=== PATIENT | male | born 1990 | race African-American/Black ===

== ENCOUNTER 2019-01-30 13:50 | Inpatient (IN) | payer SELFPAY ==
[~2019-01-30] VITALS: Ht 177.8 cm; Wt 83.9 kg
[~2019-01-30 13:50] MED LIST: LURA40TA PO
[2019-01-30] MEDS ORDERED: IV NORMAL SALINE 1000ML BAG 1,000 ML IV ONE ×2 (14:45)
[2019-01-30] MEDS ORDERED: DICYCLOMINE 20 MG/2 ML AMPUL. IM ONE (14:45)
--- NOTE | 2019-01-30 14:46 | PHYS DOC ---
Past Medical History Past Medical History: Anxiety, Bipolar, Depression, Schizophrenia, Other Additional Past Medical Histor: manic depressive disorder, panic disorder Past Surgical History: No Surgical History Alcohol Use: None Drug Use: Marijuana, Methamphetamine Adult General Chief Complaint Chief Complaint: NAUSEA/VOMITING/DIARRHA HPI HPI 28-year-old male presents to ER via POV for complaints of 5 day history of generalized fatigue, cough, nausea, and diarrhea. Patient states he has not been able to eat due to the nausea. He reports he's had minimal fluid intake. Patient states he feels like he has a fungus that he has an his lungs. Patient states he coughs and can taste the fungus. Patient reports he feels like it is hard for him to take a deep breath. Patient denies being a smoker currently and he denies any recent travel. Patient states he has felt feverish denies taking his tem perature. Patient denies any chest pain, palpitations, or abdominal pain. Patient states he has had decreased urination due to less fluid intake. Review of Systems Review of Systems Constitutional: Reports feels feverish w/generalized fatigue Eyes: Denies change in visual acuity, redness, or eye pain [] HENT: Denies nasal congestion or sore throat [] Respiratory: Reports nonprod. cough and SOA Cardiovascular: Denies CP GI: Denies abdominal pain, vomiting, or bloody stools. Reports intermittent nausea and diarrhea : Denies dysuria or hematuria. Reports decreased urine output Musculoskeletal: Denies back pain or joint pain [] Integument: Denies rash or skin lesions [] Neurologic: Denies headache, focal weakness or sensory changes [] All other systems were reviewed and found to be within normal limits, except as documented in this note. Current Medications Current Medications Current Medications Medications (Trade) Dose Ordered Sig/Magda Start Time Stop Time Status Last Admin Dose Admin Dicyclomine HCl (Bentyl) 20 mg 1X ONCE 01/30/19 14:45 01/30/19 14:46 DC 01/30/19 14:45 20 MG Sodium Chloride 1,000 ml @ 1,000 mls/hr 1X ONCE 01/30/19 14:45 01/30/19 15:44 DC 01/30/19 15:02 1,000 MLS/HR Allergies Allergies Allergies Coded Allergies Type Severity Reaction Last Updated Verified No Known Drug Allergies 03/11/15 No Physical Exam Physical Exam Constitutional: Well developed, well nourished, fatigued appearance, anxious, non-toxic appearance. [] HENT: Normocephalic, atraumatic, bilateral ears normal, mucous membranes pink/dry, no oral exudates, nose normal. [] Eyes: PERRLA, no nystagmus, conjunctiva normal, no discharge. [] Neck: Normal range of motion, no tenderness, supple, no stridor. [] Cardiovascular: Heart rate regular rhythm, no murmur [] Lungs & Thorax: Bilateral breath sounds clear to auscultation- resp. equal/non labored Abdomen: Bowel sounds normal, soft diffuse tenderness in all abd no focal area- no rebound tenderness, no distention/rigidity, no masses, no pulsatile masses. [] Skin: Warm, dry, no erythema, no rash. [] Back: No tenderness, no CVA tenderness. [] Extremities: No tenderness, no cyanosis, no clubbing, ROM intact, no edema. [] Neurologic: Alert and oriented X 3, normal motor function, normal sensory function, no focal deficits noted. [] Psychologic: Affect normal, judgement normal, mood anxious- no uncontrollable behavior/cooperative during exam Current Patient Data Vital Signs Vital Signs Date Time Temp Pulse Resp B/P (MAP) Pulse Ox O2 Delivery O2 Flow Rate FiO2 01/30/19 16:39 83 16 123/74 (90) 100 Room Air 01/30/19 14:05 97.7 97.7 Lab Values Laboratory Tests Test 01/30/19 14:24 White Blood Count 5.0 x10^3/uL (4.0-11.0) Red Blood Count 6.13 x10^6/uL (4.30-5.70) H Hemoglobin 17.7 g/dL (13.0-17.5) H Hematocrit 50.5 % (39.0-53.0) Mean Corpuscular Volume 83 fL (79-100) Mean Corpuscular Hemoglobin 29 pg (25-35) Mean Corpuscular Hemoglobin Concent 35 g/dL (31-37) Red Cell Distribution Width 13.4 % (11.5-14.5) Platelet Count 279 x10^3/uL (140-400) Neutrophils (%) (Auto) 59 % (31-73) Lymphocytes (%) (Auto) 21 % (24-48) L Monocytes (%) (Auto) 19 % (0-9) H Eosinophils (%) (Auto) 1 % (0-3) Basophils (%) (Auto) 1 % (0-3) Neutrophils # (Auto) 2.9 x10^3uL (1.8-7.7) Lymphocytes # (Auto) 1.1 x10^3/uL (1.0-4.8) Monocytes # (Auto) 0.9 x10^3/uL (0.0-1.1) Eosinophils # (Auto) 0.0 x10^3/uL (0.0-0.7) Basophils # (Auto) 0.0 x10^3/uL (0.0-0.2) Segmented Neutrophils % 22 % (35-66) L Band Neutrophils % 29 % (0-9) H Lymphocytes % 28 % (24-48) Atypical Lymphocytes % (Manual) 2 % (0-0) H Monocytes % 16 % (0-10) H Basophils % 2 % (0-3) Myelocytes % 1 % (0-0) H Promyelocytes % % (0-0) Blast Cells % (Manual) % (0-0) Platelet Estimate Adequate (ADEQUATE) Giant Platelets Present Poikilocytosis Slight Target Cells Occ Ovalocytes Few Schistocytes Occ Sodium Level 129 mmol/L (136-145) L Potassium Level 3.1 mmol/L (3.5-5.1) L Chloride Level 88 mmol/L (98-107) L Carbon Dioxide Level 27 mmol/L (21-32) Anion Gap 14 (6-14) Blood Urea Nitrogen 43 mg/dL (8-26) H Creatinine 2.6 mg/dL (0.7-1.3) H Estimated GFR (Cockcroft-Gault) 35.5 BUN/Creatinine Ratio 17 (6-20) Glucose Level 111 mg/dL (70-99) H Calcium Level 10.1 mg/dL (8.5-10.1) Magnesium Level 2.2 mg/dL (1.8-2.4) Total Bilirubin 0.7 mg/dL (0.2-1.0) Aspartate Amino Transferase (AST) 26 U/L (15-37) Alanine Aminotransferase (ALT) 25 U/L (16-63) Alkaline Phosphatase 68 U/L (46-116) Total Protein 8.9 g/dL (6.4-8.2) H Albumin 3.9 g/dL (3.4-5.0) Albumin/Globulin Ratio 0.8 (1.0-1.7) L Lipase 86 U/L (73-393) Laboratory Tests 01/30/19 14:24 Laboratory Tests 01/30/19 14:24 EKG EKG [] Radiology/Procedures Radiology/Procedures [] Course & Med Decision Making Course & Med Decision Making Pertinent Labs and Imaging studies reviewed. (See chart for details) Pt was evaluated in the ER for complaints of generalized fatigue and GI illness for the past several days. Patient had labs obtained and was found to have an electrolyte imbalance with sodium at 129 chloride 88 potassium 3.1. Patient had IV fluids administered while in the ER 2 L fluid bolus. Patient was provided with dicyclomine for diffuse abdominal pain. Patient had elevated renal function with creatinine of 2.6. WBCs normal limits at 5.0 however had bandemia with 29 bands on differential. Test results were discussed with patient. Discussed plans for admission for further monitoring and care and patient is agreeable with this plan. Will provide dose of IV Zosyn. Patient will be provided with 40 mEq by mouth potassium for replacement. VS were stable and pt was afebrile. Will admit to hospitalist services for further care. Dragon Disclaimer Dragon Disclaimer This electronic medical record was generated, in whole or in part, using a voice recognition dictation system. Departure Departure Impression: Primary Impression: Acute renal injury Additional Impressions: Diarrhea Electrolyte abnormality Disposition: 09 ADMITTED INPATIENT Admitting Physician: Shona Vivas Condition: STABLE Referrals: NO PCP (PCP) Problem Qualifiers MAIDA VALLADARES STAFFING ADMINISTRATOR Jan 30, 2019 14:46
[2019-01-30 14:49] LABS: BASO % 1 % (0-3); EOS % 1 % (0-3); HEMATOCRIT 50.5 % (39.0-53.0); HEMOGLOBIN 17.7 g/dL (13.0-17.5); LYMPH # 1.1 x10^3/uL (1.0-4.8); LYMPH % 21 % (24-48); MEAN CORPUSCULAR HEMOGLOBIN 29 pg (25-35); MEAN CORPUSCULAR HGB CONC 35 g/dL (31-37); MEAN CORPUSCULAR VOLUME 83 fL (79-100); MONO # 0.9 x10^3/uL (0.0-1.1); MONO % 19 % (0-9); NEUT # 2.9 x10^3uL (1.8-7.7); NEUT % 59 % (31-73); PLATELET COUNT 279 x10^3/uL (140-400); RED BLOOD COUNT 6.13 x10^6/uL (4.30-5.70); RED CELL DISTRIBUTION WIDTH 13.4 % (11.5-14.5)
[2019-01-30 14:58] LABS: CALCIUM 10.1 mg/dL (8.5-10.1); CREATININE 2.6 mg/dL (0.7-1.3); GFR 35.5; POTASSIUM 3.1 mmol/L (3.5-5.1)
[2019-01-30 15:04] LABS: ALBUMIN 3.9 g/dL (3.4-5.0); ALBUMIN/GLOBULIN RATIO 0.8 (1.0-1.7); MAGNESIUM 2.2 mg/dL (1.8-2.4); TOTAL BILIRUBIN 0.7 mg/dL (0.2-1.0); TOTAL PROTEIN 8.9 g/dL (6.4-8.2)
--- NOTE | 2019-01-30 15:18 | RAD ---
CHEST PA LATERAL History: cough and can feel fungus in his mouth. . Comparison: None FINDINGS: The heart size is not enlarged. No pneumothorax, pleural effusion or consolidating infiltrate. Regional skeleton appears intact. IMPRESSION: No consolidated infiltrate. Electronically signed by: Aditya Arroyo MD (01/30/2019 3:15 PM) [id number]
[2019-01-30 15:42] LABS: % ATYL 2 % (0-0); % BANDS 29 % (0-9); % BASOS 2 % (0-3); % LYMPHS 28 % (24-48); % MONOS 16 % (0-10); PLT ESTIMATE ADEQUATE (ADEQUATE)
[2019-01-30 15:55] LABS: % MYELOS 1 % (0-0); % SEGS 22 % (35-66)
[2019-01-30 15:57] LABS: OVALOCYTES FEW; POIKILOCYTOSIS SLIGHT; SCHISTOCYTES OCC; TARGET CELLS OCC
[2019-01-30 17:39] LABS: BILIRUBIN,URINE NEGATIVE (NEG); CLARITY,URINE CLEAR; COLOR,URINE YELLOW; NITRITE,URINE NEGATIVE (NEG); PH,URINE 5.5; PROTEIN,URINE NEGATIVE (NEG-TRACE); UROBILINOGEN,URINE 0.2 mg/dL (0.2 mg/dL)
[2019-01-30 17:44] LABS: BARBITURATES NEG (NEG); BENZODIAZEPINES NEG (NEG); CANNABINOIDS NEG (NEG); COCAINE NEG (NEG); METHADONE NEG (NEG); OPIATES NEG (NEG); PHENCYCLIDINE NEG (NEG)
[2019-01-30 17:45] LABS: AMPHETAMINE/METHAMPHETAMINE NEG (NEG)
[2019-01-30] MEDS ORDERED: PIPERACILLIN/TAZOBACTAM 3.375 GM in IV NORMAL SALINE 50ML 50 ML IV ONE (17:45)
[2019-01-30 17:46] LABS: BACTERIA,URINE 0 /HPF (0-FEW); RBC,URINE OCC /HPF (0-2); SQUAMOUS EPITHELIAL CELL,UR FEW /LPF; WBC,URINE RARE /HPF (0-4)
[2019-01-30 17:47] LABS: HYALINE CASTS, URINE FEW /HPF
[2019-01-30] MEDS ORDERED: LOPERAMIDE 2 MG CAPSULE PO PRN (18:00)
[2019-01-30] MEDS ORDERED: DICYCLOMINE HCL 10 MG CAPSULE PO PRN (18:00)
[2019-01-30] MEDS ORDERED: ZOLPIDEM 5 MG TABLET. PO PRN (18:00)
[2019-01-30] MEDS ORDERED: POTASSIUM CHLORIDE 20 MEQ TABLET.ER. PO ONE ×2 (18:00→18:15)
[2019-01-30] MEDS ORDERED: ONDANSETRON PF 4 MG/2 ML VIAL. IV PRN (18:00)
--- NOTE | 2019-01-30 18:06 | PDOC1 ---
History and Physical Date of Admission Date of Admission DATE: 01/30/19 TIME: 18:02 Identification/Chief Complaint Chief Complaint Diarrhea for 1-2 weeks and emesis Source Source: Caregiver, Chart review, Patient History of Present Illness History of Present Illness 28-year-old male, previously healthy, no home meds, diarrhea for 1-2 weeks maybe 5 episodes a day. Emesis too, diarrhea still ongoing at the ER but no emesis. No fevers documented. Admitted because of severe elyte abnor malities namely, sodium 129, hypochloremia 88 with a creatinine 2.6 from a normal baseline. Also hypokalemia 3.1. Hyperactive bowel sounds on auscultation, he is hungry. Agreeable to my plan of admission and elyte replacement Past Medical History Cardiovascular: No pertinent hx Pulmonary: No pertinent hx GI: No pertinent hx Heme/Onc: No pertinent hx Hepatobiliary: No pertinent hx Psych: Addictions, Depression Rheumatologic: No pertinent hx Infectious disease: No pertinent hx Renal/: No pertinent hx Endocrine: No pertinent hx Past Surgical History Past Surgical History: No pertinent history Family History Family History: Family History Unknown, Other Social History Smoke: No ALCOHOL: none Drugs: Marijuana, Crystal meth Current Medications Current Medications Current Medications Sodium Chloride 1,000 ml @ 1,000 mls/hr 1X ONCE IV Last administered on 01/30/19at 15:02; Start 01/30/19 at 14:45; Stop 01/30/19 at 15:44; Status DC Sodium Chloride 1,000 ml @ 1,000 mls/hr 1X ONCE IV Last administered on 01/30/19at 15:02; Start 01/30/19 at 14:45; Stop 01/30/19 at 15:44; Status DC Dicyclomine HCl (Bentyl) 20 mg 1X ONCE IM Last administered on 01/30/19at 14:45; Start 01/30/19 at 14:45; Stop 01/30/19 at 14:46; Status DC Piperacillin Sod/ Tazobactam Sod 3.375 gm/Sodium Chloride 50 ml @ 100 mls/hr 1X ONCE IV ; Start 01/30/19 at 17:45; Stop 01/30/19 at 18:14 Active Scripts Active Reported Latuda (Lurasidone Hcl) 40 Mg Tablet 1 Tab PO QHS [none] Allergies Allergies: Coded Allergies: No Known Drug Allergies (Unverified , 03/11/15) ROS Review of System as per history of present illness, the rest of ROS 14 point negative Physical Exam General: Alert, Oriented X3, Cooperative, No acute distress HEENT: Atraumatic, PERRLA, EOMI Lungs: Clear to auscultation, Normal air movement Heart: S1S2, RRR, no thrills, no rubs, no gallops, no murmurs Cardiovascular: S1, S2 Abdomen: Soft, Other (hyper active bowel sounds, no tenderness, no guarding) Male Genitals Exam: normal genitalia, normal prostate Rectal Exam: not examined PELVIC: Nml ext genitalia Extremities: No clubbing, No cyanosis, No edema, Normal pulses, No tenderness/swelling Skin: No rashes, No breakdown, No significant lesion Neuro: Normal gait, Normal speech, Strength at 5/5 X4 ext, Normal tone, Sensation intact, Cranial nerves 3-12 NL, Reflexes 2+ Vitals Vitals Vital Signs Date Time Temp Pulse Resp B/P (MAP) Pulse Ox O2 Delivery O2 Flow Rate FiO2 01/30/19 17:48 73 17 117/62 (80) 100 Room Air 01/30/19 14:05 97.7 97.7 Labs Labs Laboratory Tests Test 01/30/19 14:24 01/30/19 17:30 White Blood Count 5.0 x10^3/uL (4.0-11.0) Red Blood Count 6.13 x10^6/uL (4.30-5.70) Hemoglobin 17.7 g/dL (13.0-17.5) Hematocrit 50.5 % (39.0-53.0) Mean Corpuscular Volume 83 fL (79-100) Mean Corpuscular Hemoglobin 29 pg (25-35) Mean Corpuscular Hemoglobin Concent 35 g/dL (31-37) Red Cell Distribution Width 13.4 % (11.5-14.5) Platelet Count 279 x10^3/uL (140-400) Neutrophils (%) (Auto) 59 % (31-73) Lymphocytes (%) (Auto) 21 % (24-48) Monocytes (%) (Auto) 19 % (0-9) Eosinophils (%) (Auto) 1 % (0-3) Basophils (%) (Auto) 1 % (0-3) Neutrophils # (Auto) 2.9 x10^3uL (1.8-7.7) Lymphocytes # (Auto) 1.1 x10^3/uL (1.0-4.8) Monocytes # (Auto) 0.9 x10^3/uL (0.0-1.1) Eosinophils # (Auto) 0.0 x10^3/uL (0.0-0.7) Basophils # (Auto) 0.0 x10^3/uL (0.0-0.2) Segmented Neutrophils % 22 % (35-66) Band Neutrophils % 29 % (0-9) Lymphocytes % 28 % (24-48) Atypical Lymphocytes % (Manual) 2 % (0-0) Monocytes % 16 % (0-10) Basophils % 2 % (0-3) Myelocytes % 1 % (0-0) Promyelocytes % % (0-0) Blast Cells % (Manual) % (0-0) Platelet Estimate Adequate (ADEQUATE) Giant Platelets Present Poikilocytosis Slight Target Cells Occ Ovalocytes Few Schistocytes Occ Sodium Level 129 mmol/L (136-145) Potassium Level 3.1 mmol/L (3.5-5.1) Chloride Level 88 mmol/L (98-107) Carbon Dioxide Level 27 mmol/L (21-32) Anion Gap 14 (6-14) Blood Urea Nitrogen 43 mg/dL (8-26) Creatinine 2.6 mg/dL (0.7-1.3) Estimated GFR (Cockcroft-Gault) 35.5 BUN/Creatinine Ratio 17 (6-20) Glucose Level 111 mg/dL (70-99) Calcium Level 10.1 mg/dL (8.5-10.1) Magnesium Level 2.2 mg/dL (1.8-2.4) Total Bilirubin 0.7 mg/dL (0.2-1.0) Aspartate Amino Transf (AST/SGOT) 26 U/L (15-37) Alanine Aminotransferase (ALT/SGPT) 25 U/L (16-63) Alkaline Phosphatase 68 U/L (46-116) Total Protein 8.9 g/dL (6.4-8.2) Albumin 3.9 g/dL (3.4-5.0) Albumin/Globulin Ratio 0.8 (1.0-1.7) Lipase 86 U/L (73-393) Urine Collection Type Unknown Urine Color Yellow Urine Clarity Clear Urine pH 5.5 Urine Specific [place] 1.015 Urine Protein Negative mg/dL (NEG-TRACE) Urine Glucose (UA) Negative mg/dL (NEG) Urine Ketones (Stick) 15 mg/dL (NEG) Urine Blood Small (NEG) Urine Nitrite Negative (NEG) Urine Bilirubin Negative (NEG) Urine Urobilinogen Dipstick 0.2 mg/dL (0.2 mg/dL) Urine Leukocyte Esterase Negative (NEG) Urine RBC Occ /HPF (0-2) Urine WBC Rare /HPF (0-4) Urine Squamous Epithelial Cells Few /LPF Urine Bacteria 0 /HPF (0-FEW) Urine Hyaline Casts Few /HPF Urine Mucus Mod /LPF Urine Opiates Screen Neg (NEG) Urine Methadone Screen Neg (NEG) Urine Barbiturates Neg (NEG) Urine Phencyclidine Screen Neg (NEG) Urine Amphetamine/Methamphetamine Neg (NEG) Urine Benzodiazepines Screen Neg (NEG) Urine Cocaine Screen Neg (NEG) Urine Cannabinoids Screen Neg (NEG) Urine Ethyl Alcohol Neg (NEG) Laboratory Tests Test 01/30/19 14:24 01/30/19 17:30 White Blood Count 5.0 x10^3/uL (4.0-11.0) Red Blood Count 6.13 x10^6/uL (4.30-5.70) Hemoglobin 17.7 g/dL (13.0-17.5) Hematocrit 50.5 % (39.0-53.0) Mean Corpuscular Volume 83 fL (79-100) Mean Corpuscular Hemoglobin 29 pg (25-35) Mean Corpuscular Hemoglobin Concent 35 g/dL (31-37) Red Cell Distribution Width 13.4 % (11.5-14.5) Platelet Count 279 x10^3/uL (140-400) Neutrophils (%) (Auto) 59 % (31-73) Lymphocytes (%) (Auto) 21 % (24-48) Monocytes (%) (Auto) 19 % (0-9) Eosinophils (%) (Auto) 1 % (0-3) Basophils (%) (Auto) 1 % (0-3) Neutrophils # (Auto) 2.9 x10^3uL (1.8-7.7) Lymphocytes # (Auto) 1.1 x10^3/uL (1.0-4.8) Monocytes # (Auto) 0.9 x10^3/uL (0.0-1.1) Eosinophils # (Auto) 0.0 x10^3/uL (0.0-0.7) Basophils # (Auto) 0.0 x10^3/uL (0.0-0.2) Segmented Neutrophils % 22 % (35-66) Band Neutrophils % 29 % (0-9) Lymphocytes % 28 % (24-48) Atypical Lymphocytes % (Manual) 2 % (0-0) Monocytes % 16 % (0-10) Basophils % 2 % (0-3) Myelocytes % 1 % (0-0) Promyelocytes % % (0-0) Blast Cells % (Manual) % (0-0) Platelet Estimate Adequate (ADEQUATE) Giant Platelets Present Poikilocytosis Slight Target Cells Occ Ovalocytes Few Schistocytes Occ Sodium Level 129 mmol/L (136-145) Potassium Level 3.1 mmol/L (3.5-5.1) Chloride Level 88 mmol/L (98-107) Carbon Dioxide Level 27 mmol/L (21-32) Anion Gap 14 (6-14) Blood Urea Nitrogen 43 mg/dL (8-26) Creatinine 2.6 mg/dL (0.7-1.3) Estimated GFR (Cockcroft-Gault) 35.5 BUN/Creatinine Ratio 17 (6-20) Glucose Level 111 mg/dL (70-99) Calcium Level 10.1 mg/dL (8.5-10.1) Magnesium Level 2.2 mg/dL (1.8-2.4) Total Bilirubin 0.7 mg/dL (0.2-1.0) Aspartate Amino Transf (AST/SGOT) 26 U/L (15-37) Alanine Aminotransferase (ALT/SGPT) 25 U/L (16-63) Alkaline Phosphatase 68 U/L (46-116) Total Protein 8.9 g/dL (6.4-8.2) Albumin 3.9 g/dL (3.4-5.0) Albumin/Globulin Ratio 0.8 (1.0-1.7) Lipase 86 U/L (73-393) Urine Collection Type Unknown Urine Color Yellow Urine Clarity Clear Urine pH 5.5 Urine Specific [place] 1.015 Urine Protein Negative mg/dL (NEG-TRACE) Urine Glucose (UA) Negative mg/dL (NEG) Urine Ketones (Stick) 15 mg/dL (NEG) Urine Blood Small (NEG) Urine Nitrite Negative (NEG) Urine Bilirubin Negative (NEG) Urine Urobilinogen Dipstick 0.2 mg/dL (0.2 mg/dL) Urine Leukocyte Esterase Negative (NEG) Urine RBC Occ /HPF (0-2) Urine WBC Rare /HPF (0-4) Urine Squamous Epithelial Cells Few /LPF Urine Bacteria 0 /HPF (0-FEW) Urine Hyaline Casts Few /HPF Urine Mucus Mod /LPF Urine Opiates Screen Neg (NEG) Urine Methadone Screen Neg (NEG) Urine Barbiturates Neg (NEG) Urine Phencyclidine Screen Neg (NEG) Urine Amphetamine/Methamphetamine Neg (NEG) Urine Benzodiazepines Screen Neg (NEG) Urine Cocaine Screen Neg (NEG) Urine Cannabinoids Screen Neg (NEG) Urine Ethyl Alcohol Neg (NEG) VTE Prophylaxis Ordered VTE Prophylaxis Devices: Yes VTE Pharmacological Prophylaxi: Yes Assessment/Plan Assessment/Plan Acute Gastroenteritis Hypokalemia sec to GI loss AK I VMN. GI loss Hypochloremia, hyponatremia sec to GI loss Plan: aggressive hydration, replace electrolytes 40 by mouth KCl now then 20 once a day Recheck lites tomorrow with focus on sodium, potassium, chloride and creatinine No home meds to reconcile Okay for regular diet Antinausea meds and other supportive meds Seen at ER Full code KEITH AUSTIN MD Jan 30, 2019 18:06
[2019-01-30 19:00] VITALS: BP 101/52
[2019-01-30] MEDS: IV NORMAL SALINE 1000ML BAG 1,000 ML IV SCH (20:15)
[2019-01-30 23:00] VITALS: BP 103/56
[2019-01-31 03:00] VITALS: BP 113/69
--- NOTE | 2019-01-31 03:44 | NUR ---
Patient did receive one dose of potassium 40mEq, second is a duplicate order.
[2019-01-31] MEDS: IV NORMAL SALINE 1000ML BAG 1,000 ML IV SCH ×3 (04:33→21:12)
[2019-01-31 07:00] VITALS: BP 131/59
[2019-01-31] MEDS: PANTOPRAZOLE 40 MG TABLET.DR. PO SCH (07:43)
[2019-01-31] MEDS: POTASSIUM CHLORIDE 20 MEQ TABLET.ER. PO SCH (08:37)
[2019-01-31 11:00] VITALS: BP 117/54
--- NOTE | 2019-01-31 12:34 | PDOC ---
PROGRESS NOTES Chief Complaint Chief Complaint diarrhea, electrolyte abnormalities History of Present Illness History of Present Illness Patient resting comfortably in bed, reports his appetite is much better this morning, ate eggs and pace and says he wants more protein. Overall he feels a little better but doesn't feel ready for discharge yet. In discussing what could have caused his illness, he denies sick contacts, possible food poisoning, but does admit to smoking meth recently, his UDS was negative. Vitals Vitals Vital Signs Date Time Temp Pulse Resp B/P (MAP) Pulse Ox O2 Delivery O2 Flow Rate FiO2 01/31/19 11:00 98.4 71 18 117/54 (75) 100 Room Air 98.4 Physical Exam General: Alert, Oriented X3, Cooperative, No acute distress Heart: Regular rate, Normal S1, Normal S2, No murmurs Lungs: Clear, Other (good inspiratory effort, symmetric chest expansion) Abdomen: Soft, No tenderness Extremities: No clubbing, No cyanosis, No edema, Normal pulses, No tenderness/swelling Skin: No rashes, No breakdown, No significant lesion Labs LABS Laboratory Tests Test 01/30/19 14:24 01/30/19 17:30 White Blood Count 5.0 x10^3/uL (4.0-11.0) Red Blood Count 6.13 x10^6/uL (4.30-5.70) Hemoglobin 17.7 g/dL (13.0-17.5) Hematocrit 50.5 % (39.0-53.0) Mean Corpuscular Volume 83 fL (79-100) Mean Corpuscular Hemoglobin 29 pg (25-35) Mean Corpuscular Hemoglobin Concent 35 g/dL (31-37) Red Cell Distribution Width 13.4 % (11.5-14.5) Platelet Count 279 x10^3/uL (140-400) Neutrophils (%) (Auto) 59 % (31-73) Lymphocytes (%) (Auto) 21 % (24-48) Monocytes (%) (Auto) 19 % (0-9) Eosinophils (%) (Auto) 1 % (0-3) Basophils (%) (Auto) 1 % (0-3) Neutrophils # (Auto) 2.9 x10^3uL (1.8-7.7) Lymphocytes # (Auto) 1.1 x10^3/uL (1.0-4.8) Monocytes # (Auto) 0.9 x10^3/uL (0.0-1.1) Eosinophils # (Auto) 0.0 x10^3/uL (0.0-0.7) Basophils # (Auto) 0.0 x10^3/uL (0.0-0.2) Segmented Neutrophils % 22 % (35-66) Band Neutrophils % 29 % (0-9) Lymphocytes % 28 % (24-48) Atypical Lymphocytes % (Manual) 2 % (0-0) Monocytes % 16 % (0-10) Basophils % 2 % (0-3) Myelocytes % 1 % (0-0) Promyelocytes % % (0-0) Blast Cells % (Manual) % (0-0) Platelet Estimate Adequate (ADEQUATE) Giant Platelets Present Poikilocytosis Slight Target Cells Occ Ovalocytes Few Schistocytes Occ Sodium Level 129 mmol/L (136-145) Potassium Level 3.1 mmol/L (3.5-5.1) Chloride Level 88 mmol/L (98-107) Carbon Dioxide Level 27 mmol/L (21-32) Anion Gap 14 (6-14) Blood Urea Nitrogen 43 mg/dL (8-26) Creatinine 2.6 mg/dL (0.7-1.3) Estimated GFR (Cockcroft-Gault) 35.5 BUN/Creatinine Ratio 17 (6-20) Glucose Level 111 mg/dL (70-99) Calcium Level 10.1 mg/dL (8.5-10.1) Magnesium Level 2.2 mg/dL (1.8-2.4) Total Bilirubin 0.7 mg/dL (0.2-1.0) Aspartate Amino Transf (AST/SGOT) 26 U/L (15-37) Alanine Aminotransferase (ALT/SGPT) 25 U/L (16-63) Alkaline Phosphatase 68 U/L (46-116) Total Protein 8.9 g/dL (6.4-8.2) Albumin 3.9 g/dL (3.4-5.0) Albumin/Globulin Ratio 0.8 (1.0-1.7) Lipase 86 U/L (73-393) Urine Collection Type Unknown Urine Color Yellow Urine Clarity Clear Urine pH 5.5 Urine Specific [place] 1.015 Urine Protein Negative mg/dL (NEG-TRACE) Urine Glucose (UA) Negative mg/dL (NEG) Urine Ketones (Stick) 15 mg/dL (NEG) Urine Blood Small (NEG) Urine Nitrite Negative (NEG) Urine Bilirubin Negative (NEG) Urine Urobilinogen Dipstick 0.2 mg/dL (0.2 mg/dL) Urine Leukocyte Esterase Negative (NEG) Urine RBC Occ /HPF (0-2) Urine WBC Rare /HPF (0-4) Urine Squamous Epithelial Cells Few /LPF Urine Bacteria 0 /HPF (0-FEW) Urine Hyaline Casts Few /HPF Urine Mucus Mod /LPF Urine Opiates Screen Neg (NEG) Urine Methadone Screen Neg (NEG) Urine Barbiturates Neg (NEG) Urine Phencyclidine Screen Neg (NEG) Urine Amphetamine/Methamphetamine Neg (NEG) Urine Benzodiazepines Screen Neg (NEG) Urine Cocaine Screen Neg (NEG) Urine Cannabinoids Screen Neg (NEG) Urine Ethyl Alcohol Neg (NEG) Review of Systems Review of Systems improved appetite, no N/V Assessment and Plan Assessmemt and Plan Assessment: Gastroenteritis PADILLA Hypokalemia secondary to GI loss Hypochloremia Hyponatremia Plan: C. diff pending KCl 20 meq daily IVF Protonix 40 mg daily Imodium, zofran, bentyl prn Regular diet Recheck labs in AM - CBC, BMP Antibiotic history: Zosyn x1 (01/30) Dispo: possible discharge home tomorrow Comment Review of Relevant I have reviewed the following items tabby (where applicable) has been applied. Labs Laboratory Tests Test 01/30/19 14:24 01/30/19 17:30 White Blood Count 5.0 x10^3/uL (4.0-11.0) Red Blood Count 6.13 x10^6/uL (4.30-5.70) Hemoglobin 17.7 g/dL (13.0-17.5) Hematocrit 50.5 % (39.0-53.0) Mean Corpuscular Volume 83 fL (79-100) Mean Corpuscular Hemoglobin 29 pg (25-35) Mean Corpuscular Hemoglobin Concent 35 g/dL (31-37) Red Cell Distribution Width 13.4 % (11.5-14.5) Platelet Count 279 x10^3/uL (140-400) Neutrophils (%) (Auto) 59 % (31-73) Lymphocytes (%) (Auto) 21 % (24-48) Monocytes (%) (Auto) 19 % (0-9) Eosinophils (%) (Auto) 1 % (0-3) Basophils (%) (Auto) 1 % (0-3) Neutrophils # (Auto) 2.9 x10^3uL (1.8-7.7) Lymphocytes # (Auto) 1.1 x10^3/uL (1.0-4.8) Monocytes # (Auto) 0.9 x10^3/uL (0.0-1.1) Eosinophils # (Auto) 0.0 x10^3/uL (0.0-0.7) Basophils # (Auto) 0.0 x10^3/uL (0.0-0.2) Segmented Neutrophils % 22 % (35-66) Band Neutrophils % 29 % (0-9) Lymphocytes % 28 % (24-48) Atypical Lymphocytes % (Manual) 2 % (0-0) Monocytes % 16 % (0-10) Basophils % 2 % (0-3) Myelocytes % 1 % (0-0) Promyelocytes % % (0-0) Blast Cells % (Manual) % (0-0) Platelet Estimate Adequate (ADEQUATE) Giant Platelets Present Poikilocytosis Slight Target Cells Occ Ovalocytes Few Schistocytes Occ Sodium Level 129 mmol/L (136-145) Potassium Level 3.1 mmol/L (3.5-5.1) Chloride Level 88 mmol/L (98-107) Carbon Dioxide Level 27 mmol/L (21-32) Anion Gap 14 (6-14) Blood Urea Nitrogen 43 mg/dL (8-26) Creatinine 2.6 mg/dL (0.7-1.3) Estimated GFR (Cockcroft-Gault) 35.5 BUN/Creatinine Ratio 17 (6-20) Glucose Level 111 mg/dL (70-99) Calcium Level 10.1 mg/dL (8.5-10.1) Magnesium Level 2.2 mg/dL (1.8-2.4) Total Bilirubin 0.7 mg/dL (0.2-1.0) Aspartate Amino Transf (AST/SGOT) 26 U/L (15-37) Alanine Aminotransferase (ALT/SGPT) 25 U/L (16-63) Alkaline Phosphatase 68 U/L (46-116) Total Protein 8.9 g/dL (6.4-8.2) Albumin 3.9 g/dL (3.4-5.0) Albumin/Globulin Ratio 0.8 (1.0-1.7) Lipase 86 U/L (73-393) Urine Collection Type Unknown Urine Color Yellow Urine Clarity Clear Urine pH 5.5 Urine Specific [place] 1.015 Urine Protein Negative mg/dL (NEG-TRACE) Urine Glucose (UA) Negative mg/dL (NEG) Urine Ketones (Stick) 15 mg/dL (NEG) Urine Blood Small (NEG) Urine Nitrite Negative (NEG) Urine Bilirubin Negative (NEG) Urine Urobilinogen Dipstick 0.2 mg/dL (0.2 mg/dL) Urine Leukocyte Esterase Negative (NEG) Urine RBC Occ /HPF (0-2) Urine WBC Rare /HPF (0-4) Urine Squamous Epithelial Cells Few /LPF Urine Bacteria 0 /HPF (0-FEW) Urine Hyaline Casts Few /HPF Urine Mucus Mod /LPF Urine Opiates Screen Neg (NEG) Urine Methadone Screen Neg (NEG) Urine Barbiturates Neg (NEG) Urine Phencyclidine Screen Neg (NEG) Urine Amphetamine/Methamphetamine Neg (NEG) Urine Benzodiazepines Screen Neg (NEG) Urine Cocaine Screen Neg (NEG) Urine Cannabinoids Screen Neg (NEG) Urine Ethyl Alcohol Neg (NEG) Laboratory Tests Test 01/30/19 14:24 01/30/19 17:30 White Blood Count 5.0 x10^3/uL (4.0-11.0) Red Blood Count 6.13 x10^6/uL (4.30-5.70) Hemoglobin 17.7 g/dL (13.0-17.5) Hematocrit 50.5 % (39.0-53.0) Mean Corpuscular Volume 83 fL (79-100) Mean Corpuscular Hemoglobin 29 pg (25-35) Mean Corpuscular Hemoglobin Concent 35 g/dL (31-37) Red Cell Distribution Width 13.4 % (11.5-14.5) Platelet Count 279 x10^3/uL (140-400) Neutrophils (%) (Auto) 59 % (31-73) Lymphocytes (%) (Auto) 21 % (24-48) Monocytes (%) (Auto) 19 % (0-9) Eosinophils (%) (Auto) 1 % (0-3) Basophils (%) (Auto) 1 % (0-3) Neutrophils # (Auto) 2.9 x10^3uL (1.8-7.7) Lymphocytes # (Auto) 1.1 x10^3/uL (1.0-4.8) Monocytes # (Auto) 0.9 x10^3/uL (0.0-1.1) Eosinophils # (Auto) 0.0 x10^3/uL (0.0-0.7) Basophils # (Auto) 0.0 x10^3/uL (0.0-0.2) Segmented Neutrophils % 22 % (35-66) Band Neutrophils % 29 % (0-9) Lymphocytes % 28 % (24-48) Atypical Lymphocytes % (Manual) 2 % (0-0) Monocytes % 16 % (0-10) Basophils % 2 % (0-3) Myelocytes % 1 % (0-0) Promyelocytes % % (0-0) Blast Cells % (Manual) % (0-0) Platelet Estimate Adequate (ADEQUATE) Giant Platelets Present Poikilocytosis Slight Target Cells Occ Ovalocytes Few Schistocytes Occ Sodium Level 129 mmol/L (136-145) Potassium Level 3.1 mmol/L (3.5-5.1) Chloride Level 88 mmol/L (98-107) Carbon Dioxide Level 27 mmol/L (21-32) Anion Gap 14 (6-14) Blood Urea Nitrogen 43 mg/dL (8-26) Creatinine 2.6 mg/dL (0.7-1.3) Estimated GFR (Cockcroft-Gault) 35.5 BUN/Creatinine Ratio 17 (6-20) Glucose Level 111 mg/dL (70-99) Calcium Level 10.1 mg/dL (8.5-10.1) Magnesium Level 2.2 mg/dL (1.8-2.4) Total Bilirubin 0.7 mg/dL (0.2-1.0) Aspartate Amino Transf (AST/SGOT) 26 U/L (15-37) Alanine Aminotransferase (ALT/SGPT) 25 U/L (16-63) Alkaline Phosphatase 68 U/L (46-116) Total Protein 8.9 g/dL (6.4-8.2) Albumin 3.9 g/dL (3.4-5.0) Albumin/Globulin Ratio 0.8 (1.0-1.7) Lipase 86 U/L (73-393) Urine Collection Type Unknown Urine Color Yellow Urine Clarity Clear Urine pH 5.5 Urine Specific [place] 1.015 Urine Protein Negative mg/dL (NEG-TRACE) Urine Glucose (UA) Negative mg/dL (NEG) Urine Ketones (Stick) 15 mg/dL (NEG) Urine Blood Small (NEG) Urine Nitrite Negative (NEG) Urine Bilirubin Negative (NEG) Urine Urobilinogen Dipstick 0.2 mg/dL (0.2 mg/dL) Urine Leukocyte Esterase Negative (NEG) Urine RBC Occ /HPF (0-2) Urine WBC Rare /HPF (0-4) Urine Squamous Epithelial Cells Few /LPF Urine Bacteria 0 /HPF (0-FEW) Urine Hyaline Casts Few /HPF Urine Mucus Mod /LPF Urine Opiates Screen Neg (NEG) Urine Methadone Screen Neg (NEG) Urine Barbiturates Neg (NEG) Urine Phencyclidine Screen Neg (NEG) Urine Amphetamine/Methamphetamine Neg (NEG) Urine Benzodiazepines Screen Neg (NEG) Urine Cocaine Screen Neg (NEG) Urine Cannabinoids Screen Neg (NEG) Urine Ethyl Alcohol Neg (NEG) Medications Current Medications Sodium Chloride 1,000 ml @ 1,000 mls/hr 1X ONCE IV Last administered on 01/30/19at 15:02; Start 01/30/19 at 14:45; Stop 01/30/19 at 15:44; Status DC Sodium Chloride 1,000 ml @ 1,000 mls/hr 1X ONCE IV Last administered on 01/30/19at 15:02; Start 01/30/19 at 14:45; Stop 01/30/19 at 15:44; Status DC Dicyclomine HCl (Bentyl) 20 mg 1X ONCE IM Last administered on 01/30/19at 14:45; Start 01/30/19 at 14:45; Stop 01/30/19 at 14:46; Status DC Piperacillin Sod/ Tazobactam Sod 3.375 gm/Sodium Chloride 50 ml @ 100 mls/hr 1X ONCE IV Last administered on 01/30/19at 18:07; Start 01/30/19 at 17:45; Stop 01/30/19 at 18:14; Status DC Sodium Chloride 1,000 ml @ 125 mls/hr Q8H IV Last administered on 01/31/19at 04:33; Start 01/30/19 at 18:00 Potassium Chloride (Klor-Con) 40 meq 1X ONCE PO Last administered on 01/30/19at 20:14; Start 01/30/19 at 18:00; Stop 01/30/19 at 18:09; Status DC Potassium Chloride (Klor-Con) 20 meq DAILYWBKFT PO Last administered on 01/31/19at 08:37; Start 01/31/19 at 08:00 Dicyclomine HCl (Bentyl) 10 mg PRN QID PRN PO pain cramps; Start 01/30/19 at 18:00 Pantoprazole Sodium (Protonix) 40 mg DAILYAC PO Last administered on 01/31/19at 07:43; Start 01/31/19 at 07:30 Ondansetron HCl (Zofran) 4 mg PRN Q6HRS PRN IV NAUSEA/VOMITING Last administered on 01/30/19at 20:23; Start 01/30/19 at 18:00 Zolpidem Tartrate (Ambien) 5 mg PRN QHS PRN PO INSOMNIA; Start 01/30/19 at 18:00 Loperamide HCl (Imodium) 2 mg PRN Q15MIN PRN PO DIARRHEA; Start 01/30/19 at 18:00 Acetaminophen/ Hydrocodone Bitart (Lortab 5/325) 1 tab PRN Q4HRS PRN PO PAIN; Start 01/30/19 at 18:00 Potassium Chloride (Klor-Con) 40 meq 1X ONCE PO ; Start 01/30/19 at 18:15; Stop 01/30/19 at 18:16; Status DC Active Scripts Active Reported Latuda (Lurasidone Hcl) 40 Mg Tablet 1 Tab PO QHS [none] Vitals/I & O Vital Sign - Last 24 Hours 01/30/19 01/30/19 01/30/19 01/30/19 14:05 15:42 16:39 17:48 Temp 97.7 97.7 Pulse 86 74 83 73 Resp 20 19 16 17 B/P (MAP) 126/63 (84) 132/76 (94) 123/74 (90) 117/62 (80) Pulse Ox 99 100 100 100 O2 Delivery Room Air Room Air Room Air Room Air 01/30/19 01/30/19 01/30/19/26/19 19:00 20:00 23:00 03:00 Temp 98.7 98.9 98.0 98.7 98.9 98.0 Pulse 71 70 63 Resp 18 18 18 B/P (MAP) 101/52 (68) 103/56 (72) 113/69 (84) Pulse Ox 97 98 99 O2 Delivery Room Air Room Air Room Air Room Air 01/31/19 01/31/19 01/31/19 07:00 08:00 11:00 Temp 98.7 98.4 98.7 98.4 Pulse 71 71 Resp 18 18 B/P (MAP) 131/59 (83) 117/54 (75) Pulse Ox 100 100 O2 Delivery Room Air Room Air Room Air Intake and Output 01/30/19 01/30/19 01/31/19 15:00 23:00 07:00 Intake Total 2100 ml 1000 ml Balance 2100 ml 1000 ml NINOSKA MAIER III DO Jan 31, 2019 12:34
[2019-01-31 13:19] LABS: CALCIUM 8.2 mg/dL (8.5-10.1); CREATININE 1.4 mg/dL (0.7-1.3); GFR 72.5; POTASSIUM 3.5 mmol/L (3.5-5.1)
[2019-01-31 15:00] VITALS: BP 100/41
--- NOTE | 2019-01-31 17:04 | NUR ---
Patient c.diff. negative, patient verb. understanding. C. diff. isolation discontinued.
[2019-01-31 19:59] VITALS: BP 103/48
[2019-01-31 23:56] VITALS: BP 115/59
[2019-02-01 03:40] VITALS: BP 123/52
[2019-02-01] MEDS: HYDROcodone/APAP 5/325MG 1 TAB TABLET PO PRN (03:55)
[2019-02-01 07:00] VITALS: BP 128/57
[2019-02-01] MEDS: PANTOPRAZOLE 40 MG TABLET.DR. PO SCH (08:45)
[2019-02-01] MEDS: POTASSIUM CHLORIDE 20 MEQ TABLET.ER. PO SCH (08:46)
--- NOTE | 2019-02-01 10:54 | PDOC ---
PROGRESS NOTES Chief Complaint Chief Complaint diarrhea, electrolyte abnormalities c-diff neg stool History of Present Illness History of Present Illness Patient resting comfortably in bed, reports PERSISTENT DIARRHEA, . In discussing what could have caused his illness, he denies sick contacts, possible food poisoning, but does admit to smoking meth recently, his UDS was negative. hemoconcentration, acute vasomotor PADILLA cbc, comp today, CONT IV FLUID SUPPORT NEEDS STOOL CULTURE SENT TO LABR/O ENTERIC PATHOGENS Vitals Vitals Vital Signs Date Time Temp Pulse Resp B/P (MAP) Pulse Ox O2 Delivery O2 Flow Rate FiO2 02/01/19 08:46 Room Air 02/01/19 07:00 98.4 59 18 128/57 (80) 97 98.4 Physical Exam General: Alert, Oriented X3, Cooperative, No acute distress, mild distress Heart: Regular rate, Normal S1, Normal S2, No murmurs Lungs: Clear, Other (good inspiratory effort, symmetric chest expansion) Abdomen: Normal bowel sounds, Soft, No tenderness Extremities: No clubbing, No cyanosis, No edema, Normal pulses, No tenderness/swelling Skin: No rashes, No breakdown, No significant lesion Labs LABS Laboratory Tests Test 01/31/19 12:20 Sodium Level 135 mmol/L (136-145) Potassium Level 3.5 mmol/L (3.5-5.1) Chloride Level 99 mmol/L (98-107) Carbon Dioxide Level 29 mmol/L (21-32) Anion Gap 7 (6-14) Blood Urea Nitrogen 20 mg/dL (8-26) Creatinine 1.4 mg/dL (0.7-1.3) Estimated GFR (Cockcroft-Gault) 72.5 Glucose Level 95 mg/dL (70-99) Calcium Level 8.2 mg/dL (8.5-10.1) Comment Review of Relevant I have reviewed the following items tabby (where applicable) has been applied. Labs Laboratory Tests Test 01/30/19 14:24 01/30/19 17:30 01/31/19 07:00 01/31/19 12:20 White Blood Count 5.0 x10^3/uL (4.0-11.0) Red Blood Count 6.13 x10^6/uL (4.30-5.70) Hemoglobin 17.7 g/dL (13.0-17.5) Hematocrit 50.5 % (39.0-53.0) Mean Corpuscular Volume 83 fL (79-100) Mean Corpuscular Hemoglobin 29 pg (25-35) Mean Corpuscular Hemoglobin Concent 35 g/dL (31-37) Red Cell Distribution Width 13.4 % (11.5-14.5) Platelet Count 279 x10^3/uL (140-400) Neutrophils (%) (Auto) 59 % (31-73) Lymphocytes (%) (Auto) 21 % (24-48) Monocytes (%) (Auto) 19 % (0-9) Eosinophils (%) (Auto) 1 % (0-3) Basophils (%) (Auto) 1 % (0-3) Neutrophils # (Auto) 2.9 x10^3uL (1.8-7.7) Lymphocytes # (Auto) 1.1 x10^3/uL (1.0-4.8) Monocytes # (Auto) 0.9 x10^3/uL (0.0-1.1) Eosinophils # (Auto) 0.0 x10^3/uL (0.0-0.7) Basophils # (Auto) 0.0 x10^3/uL (0.0-0.2) Segmented Neutrophils % 22 % (35-66) Band Neutrophils % 29 % (0-9) Lymphocytes % 28 % (24-48) Atypical Lymphocytes % (Manual) 2 % (0-0) Monocytes % 16 % (0-10) Basophils % 2 % (0-3) Myelocytes % 1 % (0-0) Promyelocytes % % (0-0) Blast Cells % (Manual) % (0-0) Platelet Estimate Adequate (ADEQUATE) Giant Platelets Present Poikilocytosis Slight Target Cells Occ Ovalocytes Few Schistocytes Occ Sodium Level 129 mmol/L (136-145) 135 mmol/L (136-145) Potassium Level 3.1 mmol/L (3.5-5.1) 3.5 mmol/L (3.5-5.1) Chloride Level 88 mmol/L (98-107) 99 mmol/L (98-107) Carbon Dioxide Level 27 mmol/L (21-32) 29 mmol/L (21-32) Anion Gap 14 (6-14) 7 (6-14) Blood Urea Nitrogen 43 mg/dL (8-26) 20 mg/dL (8-26) Creatinine 2.6 mg/dL (0.7-1.3) 1.4 mg/dL (0.7-1.3) Estimated GFR (Cockcroft-Gault) 35.5 72.5 BUN/Creatinine Ratio 17 (6-20) Glucose Level 111 mg/dL (70-99) 95 mg/dL (70-99) Calcium Level 10.1 mg/dL (8.5-10.1) 8.2 mg/dL (8.5-10.1) Magnesium Level 2.2 mg/dL (1.8-2.4) Total Bilirubin 0.7 mg/dL (0.2-1.0) Aspartate Amino Transf (AST/SGOT) 26 U/L (15-37) Alanine Aminotransferase (ALT/SGPT) 25 U/L (16-63) Alkaline Phosphatase 68 U/L (46-116) Total Protein 8.9 g/dL (6.4-8.2) Albumin 3.9 g/dL (3.4-5.0) Albumin/Globulin Ratio 0.8 (1.0-1.7) Lipase 86 U/L (73-393) Urine Collection Type Unknown Urine Color Yellow Urine Clarity Clear Urine pH 5.5 Urine Specific [place] 1.015 Urine Protein Negative mg/dL (NEG-TRACE) Urine Glucose (UA) Negative mg/dL (NEG) Urine Ketones (Stick) 15 mg/dL (NEG) Urine Blood Small (NEG) Urine Nitrite Negative (NEG) Urine Bilirubin Negative (NEG) Urine Urobilinogen Dipstick 0.2 mg/dL (0.2 mg/dL) Urine Leukocyte Esterase Negative (NEG) Urine RBC Occ /HPF (0-2) Urine WBC Rare /HPF (0-4) Urine Squamous Epithelial Cells Few /LPF Urine Bacteria 0 /HPF (0-FEW) Urine Hyaline Casts Few /HPF Urine Mucus Mod /LPF Urine Opiates Screen Neg (NEG) Urine Methadone Screen Neg (NEG) Urine Barbiturates Neg (NEG) Urine Phencyclidine Screen Neg (NEG) Urine Amphetamine/Methamphetamine Neg (NEG) Urine Benzodiazepines Screen Neg (NEG) Urine Cocaine Screen Neg (NEG) Urine Cannabinoids Screen Neg (NEG) Urine Ethyl Alcohol Neg (NEG) Clostridium difficile Toxin B Gene Negative (Negative) Laboratory Tests Test 01/31/19 12:20 Sodium Level 135 mmol/L (136-145) Potassium Level 3.5 mmol/L (3.5-5.1) Chloride Level 99 mmol/L (98-107) Carbon Dioxide Level 29 mmol/L (21-32) Anion Gap 7 (6-14) Blood Urea Nitrogen 20 mg/dL (8-26) Creatinine 1.4 mg/dL (0.7-1.3) Estimated GFR (Cockcroft-Gault) 72.5 Glucose Level 95 mg/dL (70-99) Calcium Level 8.2 mg/dL (8.5-10.1) Medications Current Medications Sodium Chloride 1,000 ml @ 1,000 mls/hr 1X ONCE IV Last administered on 01/30/19at 15:02; Start 01/30/19 at 14:45; Stop 01/30/19 at 15:44; Status DC Sodium Chloride 1,000 ml @ 1,000 mls/hr 1X ONCE IV Last administered on 01/30/19at 15:02; Start 01/30/19 at 14:45; Stop 01/30/19 at 15:44; Status DC Dicyclomine HCl (Bentyl) 20 mg 1X ONCE IM Last administered on 01/30/19at 14:45; Start 01/30/19 at 14:45; Stop 01/30/19 at 14:46; Status DC Piperacillin Sod/ Tazobactam Sod 3.375 gm/Sodium Chloride 50 ml @ 100 mls/hr 1X ONCE IV Last administered on 01/30/19at 18:07; Start 01/30/19 at 17:45; Stop 01/30/19 at 18:14; Status DC Sodium Chloride 1,000 ml @ 125 mls/hr Q8H IV Last administered on 01/31/19at 21:12; Start 01/30/19 at 18:00 Potassium Chloride (Klor-Con) 40 meq 1X ONCE PO Last administered on 01/30/19at 20:14; Start 01/30/19 at 18:00; Stop 01/30/19 at 18:09; Status DC Potassium Chloride (Klor-Con) 20 meq DAILYWBKFT PO Last administered on 02/01/19at 08:46; Start 01/31/19 at 08:00 Dicyclomine HCl (Bentyl) 10 mg PRN QID PRN PO pain cramps; Start 01/30/19 at 18:00 Pantoprazole Sodium (Protonix) 40 mg DAILYAC PO Last administered on 02/01/19at 08:45; Start 01/31/19 at 07:30 Ondansetron HCl (Zofran) 4 mg PRN Q6HRS PRN IV NAUSEA/VOMITING Last administered on 01/30/19at 20:23; Start 01/30/19 at 18:00 Zolpidem Tartrate (Ambien) 5 mg PRN QHS PRN PO INSOMNIA; Start 01/30/19 at 18:00 Loperamide HCl (Imodium) 2 mg PRN Q15MIN PRN PO DIARRHEA; Start 01/30/19 at 18:00 Acetaminophen/ Hydrocodone Bitart (Lortab 5/325) 1 tab PRN Q4HRS PRN PO PAIN Last administered on 02/01/19at 03:55; Start 01/30/19 at 18:00 Potassium Chloride (Klor-Con) 40 meq 1X ONCE PO ; Start 01/30/19 at 18:15; Stop 01/30/19 at 18:16; Status DC Active Scripts Active Reported Latuda (Lurasidone Hcl) 40 Mg Tablet 1 Tab PO QHS [none] Vitals/I & O Vital Sign - Last 24 Hours 01/31/19 01/31/19 01/31/19 01/31/19 11:00 15:00 19:59 20:00 Temp 98.4 99.0 98.8 98.4 99.0 98.8 Pulse 71 60 67 Resp B/P (MAP) 117/54 (75) 100/41 (60) 103/48 (66) Pulse Ox 100 100 100 O2 Delivery Room Air Room Air Room Air Room Air 01/31/19 02/01/19 02/01/19 02/01/19 23:56 03:40 03:55 07:00 Temp 98.3 97.8 98.4 98.3 97.8 98.4 Pulse 61 62 59 Resp 18 18 B/P (MAP) 115/59 (77) 123/52 (75) 128/57 (80) Pulse Ox 100 100 97 O2 Delivery Room Air Room Air Room Air Room Air 02/01/19 02/01/19 08:28 08:46 O2 Delivery Room Air Room Air Intake and Output 01/31/19 01/31/19 02/01/19 14:59 22:59 06:59 Intake Total 1540 ml 1640 ml 480 ml Output Total 650 ml Balance 890 ml 1640 ml 480 ml MIL WELLS MD Feb 01, 2019 10:54
[2019-02-01 11:00] VITALS: BP 145/50
[2019-02-01] MEDS: IV NORMAL SALINE 1000ML BAG 1,000 ML IV SCH ×3 (13:36→22:29)
[2019-02-01 14:07] LABS: BASO % 1 % (0-3); EOS % 1 % (0-3); HEMATOCRIT 41.1 % (39.0-53.0); LYMPH # 1.1 x10^3/uL (1.0-4.8); LYMPH % 23 % (24-48); MEAN CORPUSCULAR HEMOGLOBIN 29 pg (25-35); MEAN CORPUSCULAR HGB CONC 34 g/dL (31-37); MEAN CORPUSCULAR VOLUME 85 fL (79-100); MONO # 0.9 x10^3/uL (0.0-1.1); MONO % 20 % (0-9); NEUT # 2.7 x10^3uL (1.8-7.7); NEUT % 56 % (31-73); PLATELET COUNT 287 x10^3/uL (140-400); RED BLOOD COUNT 4.84 x10^6/uL (4.30-5.70); RED CELL DISTRIBUTION WIDTH 13.5 % (11.5-14.5); WHITE BLOOD COUNT 4.8 x10^3/uL (4.0-11.0)
[2019-02-01 14:10] LABS: ALBUMIN/GLOBULIN RATIO 0.8 (1.0-1.7); CALCIUM 8.4 mg/dL (8.5-10.1); CREATININE 1.1 mg/dL (0.7-1.3); GFR 95.8; POTASSIUM 3.2 mmol/L (3.5-5.1); TOTAL BILIRUBIN 0.7 mg/dL (0.2-1.0); TOTAL PROTEIN 6.9 g/dL (6.4-8.2)
[2019-02-01 15:00] VITALS: BP 115/50
[2019-02-01 19:00] VITALS: BP 108/54
[2019-02-01 23:00] VITALS: BP 92/38
[2019-02-02 03:00] VITALS: BP 120/55
[2019-02-02 07:00] VITALS: BP 126/55
[2019-02-02] MEDS: POTASSIUM CHLORIDE 20 MEQ TABLET.ER. PO SCH (08:55)
[2019-02-02] MEDS: PANTOPRAZOLE 40 MG TABLET.DR. PO SCH (08:55)
[2019-02-02] MEDS: HYDROcodone/APAP 5/325MG 1 TAB TABLET PO PRN ×2 (08:56→22:17)
[2019-02-02 11:00] VITALS: BP 119/63
[2019-02-02] MEDS: IV NORMAL SALINE 1000ML BAG 1,000 ML IV SCH ×2 (11:59→17:27)
[2019-02-02 15:00] VITALS: BP 127/55
--- NOTE | 2019-02-02 15:50 | PDOC ---
PROGRESS NOTES Chief Complaint Chief Complaint diarrhea, electrolyte abnormalities c-diff neg stool History of Present Illness History of Present Illness Patient resting comfortably in bed, reports PERSISTENT DIARRHEA, . In discussing what could have caused his illness, he denies sick contacts, possible food poisoning, but does admit to smoking meth recently, his UDS was negative. hemoconcentration, acute vasomotor PADILLA \ consult GI, concern for inflammatory diarrhea, Vitals Vitals Vital Signs Date Time Temp Pulse Resp B/P (MAP) Pulse Ox O2 Delivery O2 Flow Rate FiO2 02/02/19 11:00 98.3 75 18 119/63 (81) 99 Room Air 98.3 Physical Exam General: Alert, Oriented X3, Cooperative, No acute distress, mild distress Heart: Regular rate, Normal S1, Normal S2, No murmurs Lungs: Clear, Other (good inspiratory effort, symmetric chest expansion) Abdomen: Normal bowel sounds, Soft, No tenderness Extremities: No clubbing, No cyanosis, No edema, Normal pulses, No tenderness/swelling Skin: No rashes, No breakdown, No significant lesion Review of Systems Review of Systems he feels constipated, I talked with him at length and he describes tenesmus, but wants to try to get the stool out, he has watery liquid from his rectum that appears clear and he feels like the stool is not coming out, I took STEPHANIE Cormier into the room with me to try to clarify, and we discussed with the research laboratory technician Comment Review of Relevant I have reviewed the following items tabby (where applicable) has been applied. Labs Laboratory Tests Test 02/01/19 12:55 White Blood Count 4.8 x10^3/uL (4.0-11.0) Red Blood Count 4.84 x10^6/uL (4.30-5.70) Hemoglobin 14.0 g/dL (13.0-17.5) Hematocrit 41.1 % (39.0-53.0) Mean Corpuscular Volume 85 fL (79-100) Mean Corpuscular Hemoglobin 29 pg (25-35) Mean Corpuscular Hemoglobin Concent 34 g/dL (31-37) Red Cell Distribution Width 13.5 % (11.5-14.5) Platelet Count 287 x10^3/uL (140-400) Neutrophils (%) (Auto) 56 % (31-73) Lymphocytes (%) (Auto) 23 % (24-48) Monocytes (%) (Auto) 20 % (0-9) Eosinophils (%) (Auto) 1 % (0-3) Basophils (%) (Auto) 1 % (0-3) Neutrophils # (Auto) 2.7 x10^3uL (1.8-7.7) Lymphocytes # (Auto) 1.1 x10^3/uL (1.0-4.8) Monocytes # (Auto) 0.9 x10^3/uL (0.0-1.1) Eosinophils # (Auto) 0.0 x10^3/uL (0.0-0.7) Basophils # (Auto) 0.0 x10^3/uL (0.0-0.2) Sodium Level 138 mmol/L (136-145) Potassium Level 3.2 mmol/L (3.5-5.1) Chloride Level 101 mmol/L (98-107) Carbon Dioxide Level 30 mmol/L (21-32) Anion Gap 7 (6-14) Blood Urea Nitrogen 9 mg/dL (8-26) Creatinine 1.1 mg/dL (0.7-1.3) Estimated GFR (Cockcroft-Gault) 95.8 BUN/Creatinine Ratio 8 (6-20) Glucose Level 82 mg/dL (70-99) Calcium Level 8.4 mg/dL (8.5-10.1) Total Bilirubin 0.7 mg/dL (0.2-1.0) Aspartate Amino Transf (AST/SGOT) 20 U/L (15-37) Alanine Aminotransferase (ALT/SGPT) 19 U/L (16-63) Alkaline Phosphatase 50 U/L (46-116) Total Protein 6.9 g/dL (6.4-8.2) Albumin 3.0 g/dL (3.4-5.0) Albumin/Globulin Ratio 0.8 (1.0-1.7) Microbiology 01/31/19 Stool Culture - Final, Resulted 01/31/19 Stool Culture Result 1 (TRUDY) - Final, Resulted 01/31/19 Campylobacter Antigen Assay - Preliminary, Resulted 01/31/19 Campylobactor Result 1 - Preliminary, Resulted 01/31/19 Shiga Toxin Test, Resulted Pending Medications Current Medications Sodium Chloride 1,000 ml @ 1,000 mls/hr 1X ONCE IV Last administered on 01/30/19at 15:02; Start 01/30/19 at 14:45; Stop 01/30/19 at 15:44; Status DC Sodium Chloride 1,000 ml @ 1,000 mls/hr 1X ONCE IV Last administered on 01/30/19at 15:02; Start 01/30/19 at 14:45; Stop 01/30/19 at 15:44; Status DC Dicyclomine HCl (Bentyl) 20 mg 1X ONCE IM Last administered on 01/30/19at 14:45; Start 01/30/19 at 14:45; Stop 01/30/19 at 14:46; Status DC Piperacillin Sod/ Tazobactam Sod 3.375 gm/Sodium Chloride 50 ml @ 100 mls/hr 1X ONCE IV Last administered on 01/30/19at 18:07; Start 01/30/19 at 17:45; Stop 01/30/19 at 18:14; Status DC Sodium Chloride 1,000 ml @ 125 mls/hr Q8H IV Last administered on 02/02/19at 11:59; Start 01/30/19 at 18:00 Potassium Chloride (Klor-Con) 40 meq 1X ONCE PO Last administered on 01/30/19at 20:14; Start 01/30/19 at 18:00; Stop 01/30/19 at 18:09; Status DC Potassium Chloride (Klor-Con) 20 meq DAILYWBKFT PO Last administered on 02/02/19at 08:55; Start 01/31/19 at 08:00 Dicyclomine HCl (Bentyl) 10 mg PRN QID PRN PO pain cramps; Start 01/30/19 at 18:00 Pantoprazole Sodium (Protonix) 40 mg DAILYAC PO Last administered on 02/02/19at 08:55; Start 01/31/19 at 07:30 Ondansetron HCl (Zofran) 4 mg PRN Q6HRS PRN IV NAUSEA/VOMITING Last administered on 01/30/19at 20:23; Start 01/30/19 at 18:00 Zolpidem Tartrate (Ambien) 5 mg PRN QHS PRN PO INSOMNIA; Start 01/30/19 at 18:00 Loperamide HCl (Imodium) 2 mg PRN Q15MIN PRN PO DIARRHEA; Start 01/30/19 at 18:00 Acetaminophen/ Hydrocodone Bitart (Lortab 5/325) 1 tab PRN Q4HRS PRN PO PAIN Last administered on 02/02/19at 08:56; Start 01/30/19 at 18:00 Potassium Chloride (Klor-Con) 40 meq 1X ONCE PO ; Start 01/30/19 at 18:15; Stop 01/30/19 at 18:16; Status DC Active Scripts Active Reported Latuda (Lurasidone Hcl) 40 Mg Tablet 1 Tab PO QHS [none] Vitals/I & O Vital Sign - Last 24 Hours 02/01/19 02/01/19 02/01/19 02/02/19 19:00 20:05 23:00 03:00 Temp 98.9 98.7 98.2 98.9 98.7 98.2 Pulse 71 64 60 Resp 18 18 18 B/P (MAP) 108/54 (72) 92/38 (56) 120/55 (76) Pulse Ox 98 98 96 O2 Delivery Room Air Room Air Room Air Room Air 02/02/19 02/02/19 02/02/19 02/02/19 07:00 08:00 08:56 09:56 Temp 98.6 98.6 Pulse 59 B/P (MAP) 126/55 (78) Pulse Ox 99 O2 Delivery Room Air Room Air Room Air Room Air 02/02/19 11:00 Temp 98.3 98.3 Pulse 75 Resp 18 B/P (MAP) 119/63 (81) Pulse Ox 99 O2 Delivery Room Air Intake and Output 02/01/19 02/01/19 02/02/19 15:00 23:00 07:00 Intake Total 1000 ml 580 ml 360 ml Balance 1000 ml 580 ml 360 ml JOCELYNE TIJERINA MD Feb 02, 2019 15:50
[2019-02-02] MEDS ORDERED: POLYETHYLENE GLYCOL 3350 17 GM PACKET. PO PRN (16:00)
[2019-02-02 19:00] VITALS: BP 116/60
[2019-02-02 23:00] VITALS: BP 119/59
[2019-02-03] MEDS: IV NORMAL SALINE 1000ML BAG 1,000 ML IV SCH ×3 (01:26→17:02)
[2019-02-03 03:00] VITALS: BP 111/60
[2019-02-03 07:00] VITALS: BP 110/55
[2019-02-03] MEDS: POTASSIUM CHLORIDE 20 MEQ TABLET.ER. PO SCH (07:32)
[2019-02-03] MEDS: PANTOPRAZOLE 40 MG TABLET.DR. PO SCH (07:32)
--- NOTE | 2019-02-03 09:45 | PDOC2 ---
GI CONSULT Reason For Consult: Diarrhea HPI: HPI: 28 y/o male who is not the best historian. He is homeless. Admitted through ER on 01/30. He was ill w/ watery diarrhea x 5 days before coming to the hospital. He thinks diarrhea was precipitated by eating gizzards and liver. Previously, he had one formed stool QOD. Now he has multiple "brown watery" stools throughout the day. He has had 15 so far this morning - says he doesn't tell or show the staff. He describes passing a small amount of stool with the feeling of incomplete evacuation. Every 5th or 6th stool he feels better. Tolerating PO (eating leftover pizza this morning) but previously had some n/v and decreased appetite along w/ presumed weight loss. Denies hematochezia or melena. Has some mild upper abdominal discomfort w/ movement. In November, vomited some blood possibly precipitated by taking too much ASA - no recurrent hematemesis. No reflux/heartburn or dysphagia. No previous EGD or colonoscopy. No GB, liver, or pancreas history. On pantoprazole here. Has Imodium ordered, hasn't used. Apparently yesterday he described feeling constipation (despite diarrhea) and requested a stool softener. C Diff and stool culture are negative, Giardia pending. PMH: PMH: UTI, panic disorder, schizophrenia, depression, left forearm injury FH: Family History: No pertinent hx ("we're all healthy") Social History: Smoke: Quit ALCOHOL: none Drugs: Other (multiple drugs in the past) ROS: GEN: Denies fevers, chills, sweats HEENT: Denies blurred vision, sore throat CV: Denies chest pain RESP: cough - better GI: Per HPI : decreased frequency - improved ENDO: ?weight loss NEURO: Denies confusion, dizziness MSK: Denies weakness, joint pain/swelling SKIN: Denies jaundice, pruritus Vitals: Vitals: Vital Signs Date Time Temp Pulse Resp B/P (MAP) Pulse Ox O2 Delivery O2 Flow Rate FiO2 02/03/19 08:00 Room Air 02/03/19 07:00 98.7 58 16 110/55 (73) 100 98.7 Labs: Labs: STOOL CULTURE Final Final report STOOL CULT RES 1 Final Comment No Salmonella or Shigella recovered. CAMPY Preliminary Preliminary report CAMPY RES 1 Preliminary Comment No Campylobacter species isolated. SHIGA TOXIN Final Negative Allergies: Coded Allergies: No Known Drug Allergies (Unverified , 03/11/15) Medications: Please see EMR. Imaging: Imaging: CXR 01/30/19 IMPRESSION: No consolidated infiltrate. PE: GEN: NAD HEENT: Atraumatic, PERRL LUNGS: CTAB HEART: RRR ABD: hypoactive BS, S/ND, very mild tenderness epigastrium - vague EXTREMITY: No edema SKIN: No rashes, no jaundice NEURO/PSYCH: A & O 3 A/P: A/P: Diarrhea, upper abd discomfort, tenesmus - ?precipitated by bad food, C Diff and stool culture negative N/v, decreased appetite, ?weight loss - better H/o hematemesis - in Nov 2018, says precipitated by taking ASA, on PPI here CRC screen - average risk Hypokalemia, PADILLA (resolve) - per primary -- No abdominal imaging yet - check x-ray. Giardia pending. Continue PPI. ?social work to see - homeless Will review w/ Dr. Joe re: further workup. RAYA VILLELA Feb 03, 2019 09:45
[2019-02-03 11:00] VITALS: BP 120/52
[2019-02-03 11:02] LABS: HEMATOCRIT 39.2 % (39.0-53.0); HEMOGLOBIN 13.2 g/dL (13.0-17.5); RED BLOOD COUNT 4.6 x10^6/uL (4.30-5.70); RED CELL DISTRIBUTION WIDTH 13.3 % (11.5-14.5); WHITE BLOOD COUNT 6.4 x10^3/uL (4.0-11.0)
--- NOTE | 2019-02-03 11:12 | RAD ---
Acute abdomen series with chest, 3 views, 02/03/2019: HISTORY: Abdominal pain and diarrhea The bowel loops are not dilated. Several small air-fluid levels are noted in the transverse colon compatible with the given history of diarrhea. No free air is seen in the abdomen. There is no evidence of organomegaly or abnormal abdominal calcification. The heart size is normal. The lungs are clear. There is no evidence of pleural fluid. IMPRESSION: 1. Scattered small air-fluid levels in the colon compatible with the history of diarrhea. 2. The abdomen is otherwise unremarkable. Electronically signed by: Cesar Tabares MD (02/03/2019 11:09 AM) [facility]
[2019-02-03 11:31] LABS: CALCIUM 8.6 mg/dL (8.5-10.1); CREATININE 0.9 mg/dL (0.7-1.3); GFR 120.7
--- NOTE | 2019-02-03 13:18 | PDOC ---
PROGRESS NOTES Chief Complaint Chief Complaint diarrhea, electrolyte abnormalities odd affect History of Present Illness History of Present Illness Patient resting comfortably in bed ]still having liquid stool \ consult GI, concern for inflammatory diarrhea, Vitals Vitals Vital Signs Date Time Temp Pulse Resp B/P (MAP) Pulse Ox O2 Delivery O2 Flow Rate FiO2 02/03/19 11:00 97.7 59 14 120/52 (74) 100 Room Air 97.7 Physical Exam General: Alert, Oriented X3, Cooperative, No acute distress, mild distress Heart: Regular rate, Normal S1, Normal S2, No murmurs Lungs: Clear, Other (good inspiratory effort, symmetric chest expansion) Abdomen: Normal bowel sounds, Soft, No tenderness Extremities: No clubbing, No cyanosis, No edema, Normal pulses, No t enderness/swelling Skin: No rashes, No breakdown, No significant lesion Labs LABS Laboratory Tests Test 02/03/19 10:35 White Blood Count 6.4 x10^3/uL (4.0-11.0) Red Blood Count 4.60 x10^6/uL (4.30-5.70) Hemoglobin 13.2 g/dL (13.0-17.5) Hematocrit 39.2 % (39.0-53.0) Mean Corpuscular Volume 85 fL (79-100) Mean Corpuscular Hemoglobin 29 pg (25-35) Mean Corpuscular Hemoglobin Concent 34 g/dL (31-37) Red Cell Distribution Width 13.3 % (11.5-14.5) Platelet Count 341 x10^3/uL (140-400) Sodium Level 139 mmol/L (136-145) Potassium Level 4.0 mmol/L (3.5-5.1) Chloride Level 104 mmol/L (98-107) Carbon Dioxide Level 29 mmol/L (21-32) Anion Gap 6 (6-14) Blood Urea Nitrogen 8 mg/dL (8-26) Creatinine 0.9 mg/dL (0.7-1.3) Estimated GFR (Cockcroft-Gault) 120.7 Glucose Level 95 mg/dL (70-99) Calcium Level 8.6 mg/dL (8.5-10.1) Assessment and Plan Assessmemt and Plan Problems Medical Problems: (1) Acute renal injury Status: Acute (2) Diarrhea Status: Acute (3) Electrolyte abnormality Status: Acute Comment Review of Relevant I have reviewed the following items tabby (where applicable) has been applied. Labs Laboratory Tests Test 02/03/19 10:35 White Blood Count 6.4 x10^3/uL (4.0-11.0) Red Blood Count 4.60 x10^6/uL (4.30-5.70) Hemoglobin 13.2 g/dL (13.0-17.5) Hematocrit 39.2 % (39.0-53.0) Mean Corpuscular Volume 85 fL (79-100) Mean Corpuscular Hemoglobin 29 pg (25-35) Mean Corpuscular Hemoglobin Concent 34 g/dL (31-37) Red Cell Distribution Width 13.3 % (11.5-14.5) Platelet Count 341 x10^3/uL (140-400) Sodium Level 139 mmol/L (136-145) Potassium Level 4.0 mmol/L (3.5-5.1) Chloride Level 104 mmol/L (98-107) Carbon Dioxide Level 29 mmol/L (21-32) Anion Gap 6 (6-14) Blood Urea Nitrogen 8 mg/dL (8-26) Creatinine 0.9 mg/dL (0.7-1.3) Estimated GFR (Cockcroft-Gault) 120.7 Glucose Level 95 mg/dL (70-99) Calcium Level 8.6 mg/dL (8.5-10.1) Laboratory Tests Test 02/03/19 10:35 White Blood Count 6.4 x10^3/uL (4.0-11.0) Red Blood Count 4.60 x10^6/uL (4.30-5.70) Hemoglobin 13.2 g/dL (13.0-17.5) Hematocrit 39.2 % (39.0-53.0) Mean Corpuscular Volume 85 fL (79-100) Mean Corpuscular Hemoglobin 29 pg (25-35) Mean Corpuscular Hemoglobin Concent 34 g/dL (31-37) Red Cell Distribution Width 13.3 % (11.5-14.5) Platelet Count 341 x10^3/uL (140-400) Sodium Level 139 mmol/L (136-145) Potassium Level 4.0 mmol/L (3.5-5.1) Chloride Level 104 mmol/L (98-107) Carbon Dioxide Level 29 mmol/L (21-32) Anion Gap 6 (6-14) Blood Urea Nitrogen 8 mg/dL (8-26) Creatinine 0.9 mg/dL (0.7-1.3) Estimated GFR (Cockcroft-Gault) 120.7 Glucose Level 95 mg/dL (70-99) Calcium Level 8.6 mg/dL (8.5-10.1) Microbiology 01/31/19 Stool Culture - Final, Resulted 01/31/19 Stool Culture Result 1 (TRUDY) - Final, Resulted 01/31/19 Campylobacter Antigen Assay - Preliminary, Resulted 01/31/19 Campylobactor Result 1 - Preliminary, Resulted 01/31/19 Shiga Toxin Test - Final, Resulted Medications Current Medications Sodium Chloride 1,000 ml @ 1,000 mls/hr 1X ONCE IV Last administered on 01/30/19at 15:02; Start 01/30/19 at 14:45; Stop 01/30/19 at 15:44; Status DC Sodium Chloride 1,000 ml @ 1,000 mls/hr 1X ONCE IV Last administered on 01/30/19at 15:02; Start 01/30/19 at 14:45; Stop 01/30/19 at 15:44; Status DC Dicyclomine HCl (Bentyl) 20 mg 1X ONCE IM Last administered on 01/30/19at 14:45; Start 01/30/19 at 14:45; Stop 01/30/19 at 14:46; Status DC Piperacillin Sod/ Tazobactam Sod 3.375 gm/Sodium Chloride 50 ml @ 100 mls/hr 1X ONCE IV Last administered on 01/30/19at 18:07; Start 01/30/19 at 17:45; Stop 01/30/19 at 18:14; Status DC Sodium Chloride 1,000 ml @ 125 mls/hr Q8H IV Last administered on 02/03/19at 09:19; Start 01/30/19 at 18:00 Potassium Chloride (Klor-Con) 40 meq 1X ONCE PO Last administered on 01/30/19at 20:14; Start 01/30/19 at 18:00; Stop 01/30/19 at 18:09; Status DC Potassium Chloride (Klor-Con) 20 meq DAILYWBKFT PO Last administered on 02/03/19 07:32; Start 01/31/19 at 08:00 Dicyclomine HCl (Bentyl) 10 mg PRN QID PRN PO pain cramps; Start 01/30/19 at 18:00 Pantoprazole Sodium (Protonix) 40 mg DAILYAC PO Last administered on 02/03/19 07:32; Start 01/31/19 at 07:30 Ondansetron HCl (Zofran) 4 mg PRN Q6HRS PRN IV NAUSEA/VOMITING Last administered on 01/30/19at 20:23; Start 01/30/19 at 18:00 Zolpidem Tartrate (Ambien) 5 mg PRN QHS PRN PO INSOMNIA; Start 01/30/19 at 18:00 Loperamide HCl (Imodium) 2 mg PRN Q15MIN PRN PO DIARRHEA Last administered on 02/03/19 11:19; Start 01/30/19 at 18:00 Acetaminophen/ Hydrocodone Bitart (Lortab 5/325) 1 tab PRN Q4HRS PRN PO PAIN Last administered on 02/02/19at 22:17; Start 01/30/19 at 18:00 Potassium Chloride (Klor-Con) 40 meq 1X ONCE PO ; Start 01/30/19 at 18:15; Stop 01/30/19 at 18:16; Status DC Polyethylene Glycol (miraLAX PACKET) 17 gm PRN DAILY PRN PO CONSTIPATION; Start 02/02/19 at 16:00 Active Scripts Active Reported Latuda (Lurasidone Hcl) 40 Mg Tablet 1 Tab PO QHS [none] Vitals/I & O Vital Sign - Last 24 Hours 02/02/19 02/02/19 02/02/19 02/02/19 15:00 19:00 20:05 22:17 Temp 98.6 98.7 98.6 98.7 Pulse 59 57 Resp 18 16 B/P (MAP) 127/55 (79) 116/60 (78) Pulse Ox 99 99 O2 Delivery Room Air Room Air Room Air Room Air 02/02/19 02/02/19 02/03/19 02/03/19 23:00 23:17 03:00 07:00 Temp 98.7 98.4 98.7 98.7 98.4 98.7 Pulse 60 59 58 Resp 17 16 17 16 B/P (MAP) 119/59 (79) 111/60 (77) 110/55 (73) Pulse Ox 99 100 100 O2 Delivery Room Air Room Air Room Air Room Air 02/03/19 02/03/19 08:00 11:00 Temp 97.7 97.7 Pulse 59 Resp 14 B/P (MAP) 120/52 (74) Pulse Ox 100 O2 Delivery Room Air Room Air Intake and Output 02/02/19 02/02/19 02/03/19 15:00 23:00 07:00 Intake Total 750 ml 80 ml 240 ml Output Total 3 ml Balance 747 ml 80 ml 240 ml JOCELYNE TIJERINA MD Feb 03, 2019 13:18
[2019-02-03 15:00] VITALS: BP 121/44
[2019-02-03 19:00] VITALS: BP 122/55
[2019-02-03] MEDS: HYDROcodone/APAP 5/325MG 1 TAB TABLET PO PRN (22:30)
[2019-02-03 22:57] VITALS: BP 111/63
[2019-02-04] MEDS: IV NORMAL SALINE 1000ML BAG 1,000 ML IV SCH ×2 (02:00→10:00)
[2019-02-04 03:00] VITALS: BP 113/52
[2019-02-04 07:00] VITALS: BP 115/56
[2019-02-04] MEDS: POTASSIUM CHLORIDE 20 MEQ TABLET.ER. PO SCH (08:00)
--- NOTE | 2019-02-04 09:10 | PDOC ---
Subjective: Subjective: Tells me he had 30 stools yesterday. Tolerating PO. Objective: Objective: Looks like took Imodium yesterday. D/w RN - he reports diarrhea, staff has not seen this. Vital Signs: Vital Signs Date Time Temp Pulse Resp B/P (MAP) Pulse Ox O2 Delivery O2 Flow Rate FiO2 02/04/19 07:00 98.3 56 16 115/56 (75) 100 Room Air 98.3 Labs: Laboratory Tests Test 02/03/19 10:35 White Blood Count 6.4 x10^3/uL Red Blood Count 4.60 x10^6/uL Hemoglobin 13.2 g/dL Hematocrit 39.2 % Mean Corpuscular Volume 85 fL Mean Corpuscular Hemoglobin 29 pg Mean Corpuscular Hemoglobin Concent 34 g/dL Red Cell Distribution Width 13.3 % Platelet Count 341 x10^3/uL Sodium Level 139 mmol/L Potassium Level 4.0 mmol/L Chloride Level 104 mmol/L Carbon Dioxide Level 29 mmol/L Anion Gap 6 Blood Urea Nitrogen 8 mg/dL Creatinine 0.9 mg/dL Estimated GFR (Cockcroft-Gault) 120.7 Glucose Level 95 mg/dL Calcium Level 8.6 mg/dL Imaging: AAS 02/03 IMPRESSION: 1. Scattered small air-fluid levels in the colon compatible with the history of diarrhea. 2. The abdomen is otherwise unremarkable. PE: GEN: NAD - he was walking to the restroom holding a plastic fork LUNGS: room air HEART: RRR ABD: NABS, S/ND/NT NEURO/PSYCH: A & O 3 A/P: Diarrhea - suspect food poisoning -- He reports ongoing diarrhea - this is not witnessed by staff. I asked him to communicate with them. Imodium as needed. DC per primary. RAYA VILLELA Feb 04, 2019 09:10
[2019-02-04] MEDS ORDERED: LOPE2CAP PO (09:25)
[2019-02-04] MEDS: HYDROcodone/APAP 5/325MG 1 TAB TABLET PO PRN (10:17)
[2019-02-04] MEDS: PANTOPRAZOLE 40 MG TABLET.DR. PO SCH (10:17)
[2019-02-04 11:00] VITALS: BP 112/54
--- NOTE | 2019-02-04 19:25 | PDOC ---
PROGRESS NOTES Chief Complaint Chief Complaint diarrhea, electrolyte abnormalities odd affect History of Present Illness History of Present Illness try to DC he reports many stools, not seen by any staff, unsure if true cont current Vitals Vitals Vital Signs Date Time Temp Pulse Resp B/P (MAP) Pulse Ox O2 Delivery O2 Flow Rate FiO2 02/04/19 11:20 20 93 Room Air 02/04/19 11:00 98.7 50 112/54 (73) 98.7 Physical Exam General: Alert, Oriented X3, Cooperative, No acute distress, mild distress Heart: Regular rate, Normal S1, Normal S2, No murmurs Lungs: Clear, Other (good inspiratory effort, symmetric chest expansion) Abdomen: Normal bowel sounds, Soft, No tenderness Extremities: No clubbing, No cyanosis, No edema, Normal pulses, No t enderness/swelling Skin: No rashes, No breakdown, No significant lesion Assessment and Plan Assessmemt and Plan Problems Medical Problems: (1) Acute renal injury Status: Acute (2) Diarrhea Status: Acute (3) Electrolyte abnormality Status: Acute Comment Review of Relevant I have reviewed the following items tabby (where applicable) has been applied. Labs Laboratory Tests Test 02/03/19 10:35 White Blood Count 6.4 x10^3/uL (4.0-11.0) Red Blood Count 4.60 x10^6/uL (4.30-5.70) Hemoglobin 13.2 g/dL (13.0-17.5) Hematocrit 39.2 % (39.0-53.0) Mean Corpuscular Volume 85 fL (79-100) Mean Corpuscular Hemoglobin 29 pg (25-35) Mean Corpuscular Hemoglobin Concent 34 g/dL (31-37) Red Cell Distribution Width 13.3 % (11.5-14.5) Platelet Count 341 x10^3/uL (140-400) Sodium Level 139 mmol/L (136-145) Potassium Level 4.0 mmol/L (3.5-5.1) Chloride Level 104 mmol/L (98-107) Carbon Dioxide Level 29 mmol/L (21-32) Anion Gap 6 (6-14) Blood Urea Nitrogen 8 mg/dL (8-26) Creatinine 0.9 mg/dL (0.7-1.3) Estimated GFR (Cockcroft-Gault) 120.7 Glucose Level 95 mg/dL (70-99) Calcium Level 8.6 mg/dL (8.5-10.1) Microbiology 02/01/19 Stool Culture, Resulted Pending 02/01/19 Stool Culture Result 1 (TRUDY), Resulted Pending 02/01/19 Campylobacter Antigen Assay - Preliminary, Resulted 02/01/19 Campylobactor Result 1 - Preliminary, Resulted 02/01/19 Shiga Toxin Test - Final, Resulted Medications Current Medications Sodium Chloride 1,000 ml @ 1,000 mls/hr 1X ONCE IV Last administered on 01/30/19at 15:02; Start 01/30/19 at 14:45; Stop 01/30/19 at 15:44; Status DC Sodium Chloride 1,000 ml @ 1,000 mls/hr 1X ONCE IV Last administered on 01/30/19at 15:02; Start 01/30/19 at 14:45; Stop 01/30/19 at 15:44; Status DC Dicyclomine HCl (Bentyl) 20 mg 1X ONCE IM Last administered on 01/30/19at 14:45; Start 01/30/19 at 14:45; Stop 01/30/19 at 14:46; Status DC Piperacillin Sod/ Tazobactam Sod 3.375 gm/Sodium Chloride 50 ml @ 100 mls/hr 1X ONCE IV Last administered on 01/30/19at 18:07; Start 01/30/19 at 17:45; Stop 01/30/19 at 18:14; Status DC Sodium Chloride 1,000 ml @ 125 mls/hr Q8H IV Last administered on 02/04/19 02:00; Start 01/30/19 at 18:00 Potassium Chloride (Klor-Con) 40 meq 1X ONCE PO Last administered on 01/30/19at 20:14; Start 01/30/19 at 18:00; Stop 01/30/19 at 18:09; Status DC Potassium Chloride (Klor-Con) 20 meq DAILYWBKFT PO Last administered on 02/03/19at 07:32; Start 01/31/19 at 08:00 Dicyclomine HCl (Bentyl) 10 mg PRN QID PRN PO pain cramps; Start 01/30/19 at 18:00 Pantoprazole Sodium (Protonix) 40 mg DAILYAC PO Last administered on 02/04/19 10:17; Start 01/31/19 at 07:30 Ondansetron HCl (Zofran) 4 mg PRN Q6HRS PRN IV NAUSEA/VOMITING Last administered on 01/30/19at 20:23; Start 01/30/19 at 18:00 Zolpidem Tartrate (Ambien) 5 mg PRN QHS PRN PO INSOMNIA; Start 01/30/19 at 18:00 Loperamide HCl (Imodium) 2 mg PRN Q15MIN PRN PO DIARRHEA Last administered on 02/03/19 11:19; Start 01/30/19 at 18:00 Acetaminophen/ Hydrocodone Bitart (Lortab 5/325) 1 tab PRN Q4HRS PRN PO PAIN Last administered on 02/04/19 10:17; Start 01/30/19 at 18:00 Potassium Chloride (Klor-Con) 40 meq 1X ONCE PO ; Start 01/30/19 at 18:15; Stop 01/30/19 at 18:16; Status DC Polyethylene Glycol (miraLAX PACKET) 17 gm PRN DAILY PRN PO CONSTIPATION; Start 02/02/19 at 16:00 Active Scripts Active Loperamide (Loperamide Hcl) 2 Mg Capsule 2 Mg PO PRN Q15MIN PRN Reported Latuda (Lurasidone Hcl) 40 Mg Tablet 1 Tab PO QHS [none] Vitals/I & O Vital Sign - Last 24 Hours 02/03/19 02/03/19 02/03/19 02/04/19 20:10 22:30 22:57 03:00 Temp 98.5 98.4 98.5 98.4 Pulse 60 57 Resp 16 18 18 B/P (MAP) 111/63 (79) 113/52 (72) Pulse Ox 100 98 O2 Delivery Room Air Room Air Room Air 02/04/19 02/04/19 02/04/19 02/04/19 07:00 08:00 10:17 11:00 Temp 98.3 98.7 98.3 98.7 Pulse 56 50 Resp 16 19 16 B/P (MAP) 115/56 (75) 112/54 (73) Pulse Ox 100 94 100 O2 Delivery Room Air Room Air Room Air Room Air 02/04/19 11:20 Resp 20 Pulse Ox 93 O2 Delivery Room Air Intake and Output 02/03/19 02/03/19 02/04/19 15:00 23:00 07:00 Intake Total 1800 ml Balance 1800 ml JOCELYNE TIJERINA MD Feb 04, 2019 19:25
== END 2019-02-04 16:20 | disposition home or self-care (01) | DRG 391 ==
LOC: ER 13:50 → 5 NORTH 17:10
PROVIDERS: ADMIT Internal Medicine; ATTEND Internal Medicine
DX: K52.9 Noninfective gastroenteritis and colitis, unspecified (principal); N17.0 Acute kidney failure with tubular necrosis; E87.1 Hypo-osmolality and hyponatremia; E86.9 Volume depletion, unspecified; E87.6 Hypokalemia; E87.8 Other disorders of electrolyte and fluid balance, not elsewhere classified; F20.9 Schizophrenia, unspecified; F12.90 Cannabis use, unspecified, uncomplicated; F41.9 Anxiety disorder, unspecified; F31.9 Bipolar disorder, unspecified; F41.0 Panic disorder [episodic paroxysmal anxiety]; K59.00 Constipation, unspecified; Z59.0 Homelessness
CPT/HCPCS: 36415; 71046; 74022; 80048; 80053; 80307; 81001; 83690; 83735; 85007; 85025; 85027; 87045; 87493; 96361; 96365; 96372; J0500; J2405; J2543; J7030; 99285-25